=== PATIENT | male | born 1980 | race Caucasian/White ===

== ENCOUNTER 2021-03-11 19:34 | Emergency (ER) | payer BC, SELFPAY ==
[2021-03-11] VITALS (17 sets, daily range): BP systolic 140–203; BP diastolic 94–120; PULSE 60–95; RESP 12–19; TEMP 36.6; O2SAT 99–100
--- NOTE | ~2021-03-11 | CT_ITS ---
EXAMINATION: CT abdomen pelvis w con DATE: 03/11/2021 21:47 INDICATION: Abdominal pain. Leukocytosis. TECHNIQUE: Computed tomography (CT) of the abdomen and pelvis was performed with 100 cc Omnipaque 350 intravenous contrast. The dose-length product was 811.27 mGy-cm. Automated exposure control and iter ative reconstruction technique were employed. COMPARISON: None. FINDINGS: Lung bases are unremarkable. There is dependent atelectasis. Heart size is normal. No signi ficant pleural or pericardial effusion. No significant vascular abnormality. No lymphadenopathy. Ther e is moderate fluid throughout the small bowel which is nondilated. Gallstones. Fatty infiltration of the liver. Mild gallbladder distention. The spleen, pancreas, adren al glands and kidneys are unremarkable. No hydronephrosis. No abnormal pelvic masses or fluid collect ions. No free air or free fluid. There is disc narrowing at L5-S1. No evidence for fracture, subluxat ion or spondylolisthesis. IMPRESSION: 1. Cholelithiasis with gallbladder distention. Consider cholecystitis in the appropriate clinical set ting. Reviewed, dictated and finalized at location A. IMPRESSION: 1. Cholelithiasis with gallbladder distention. Consider cholecystitis in the ap propriate clinical setting.
[2021-03-11 20:14] LABS: Basophils Absolute Auto 0.1 K/mm3 (0.0-0.1); Basophils Percent Auto 0.4 % (0.2-1.2); Eosinophils Percent Auto 0.1 % (0-4.4); Hematocrit 46.2 % (42.0-52.0); Hemoglobin 16.1 g/dL (14.0-18.0); Immature Granulocyte Absolute 0.08 K/mm3 (0.00-0.031); Immature Granulocyte Percent A 0.4 % (0-0.5); Lymphocytes Absolute Auto 3.03 K/mm3 (0.9-3.2); Lymphocytes Percent Auto 14.8 % (18.3-44.2); Mean Corpuscular HGB Conc 34.8 g/dl (32-36); Mean Corpuscular Hemoglobin 29.5 pg (26-34); Mean Corpuscular Volume 84.8 fl (80-100); Mean Platelet Volume 9.1 fl (7.4-10.4); Monocytes Absolute Auto 1.9 K/mm3 (0.1-0.6); Monocytes Percent Auto 9.4 % (2.6-8.5); Neutrophils Absolute Auto 15.4 K/mm3 (1.3-6.7); Neutrophils Percent Auto 74.9 % (45.5-73.1); Platelet Count Result 344 k/mm3 (150-375); Red Blood Count 5.45 M/mm3 (4.6-6.20); Red Cell Distribution Width 13.2 % (11.5-14.5); White Blood Count 20.5 K/mm3 (4.5-10.0)
--- NOTE | 2021-03-11 20:27 | ECG_ITS ---
Measurements Intervals [place] Rate: 68 P: 41 NC: 141 QRS: 62 QRSD: 106 T: 67 QT: 408 QTc: 436 Interpretive Statements SINUS RHYTHM BASELINE ARTIFACT- I, II, III, AVR, AVL, AVF, V1-V6 NORMAL ECG Electronically Signed On 03-12-2021 8:07:27 CDT by Junior Eldridge D.O.
[2021-03-11 20:31] LABS: Alanine Aminotransferase 31 U/L (4-50); Albumin Level 5.1 g/dL (3.5-5.1); Alkaline Phosphatase 97 U/L (38-126); Anion Gap 15 mmol/L (8-16); Aspartate Amino Transferase 31 U/L (17-59); Bilirubin,Total 0.9 mg/dL (0.2-1.3); Blood Urea Nitrogen 12 mg/dL (9-20); Calcium 9.5 mg/dL (8.4-10.2); Carbon Dioxide 26 mmol/L (22-30); Chloride 100 mmol/L (98-107); Estimated CRCL calculation 126 ml/min; Estimated Glomerular Filt Rate > 60; Glucose 117 mg/dL (65-110); Lipase 61 U/L (23-300); Potassium 3.7 mmol/L (3.4-5.0); Sodium 141 mmol/L (137-145)
--- NOTE | 2021-03-11 20:57 | ED.ABDPAIN ---
HPI - Abdominal Pain General Chief Complaint: Abdominal Pain Stated Complaint: Abd pain, nausea Time Seen by Provider: 03/11/21 20:57 Source: patient Mode of arrival: ambulatory Limitations: no limitations History of Present Illness HPI narrative: 40-year-old male past medical history of hypertension arrives complaining of midepigastric pain radiating to the right upper quadrant since this afternoon. Also complains of nausea. No vomiting, no diarrhea, no hematemesis no dark tarry stools no hematochezia. Pain is described as sharp stabbing relieved by nothing. Tylenol without relief. Patient arrives in moderate distress diaphoretic complaining of epigastric pain. MD elicited complaint: abdominal pain Onset (ago): hour(s) (5) Pain Consistency: constant Location: epigastric Severity: severe Quality: stabbing and sharp Radiation: RUQ Exacerbating factors: nothing Relieving factors: nothing Context: confirms other (No previous history of same) Associated symptoms: nausea and other (No vomiting, no hematemesis, no dark tarry stools no hematochezia. No flank pain no dysuria no hematuria) Related Data Home Medications Medication Instructions Recorded Confirmed losartan 100 mg PO DAILY 03/11/21 03/11/21 metoprolol succinate 50 mg PO DAILY 03/11/21 03/11/21 venlafaxine 37.5 mg PO DAILY 03/11/21 03/11/21 Allergies Allergy/AdvReac Type Severity Reaction Status Date / Time Penicillins Allergy Unknown Verified 03/11/21 20:02 Review of Systems Review of Systems: CONSTITUTIONAL: no fever, no weight loss, no confusion EYES: no vision changes, no eye pain ENT: no rhinorrhea, no sore throat, no difficulty swallowing CARDIOVASCULAR: no chest pain, no leg edema, no palpitations RESPIRATORY: no cough, no shortness of breath, no hemoptysis GASTROINTESTINAL: positive for abdominal pain and nausea, no vomiting, no diarrhea GENITOURINARY: no flank pain, no dysuria, no hematuria SKIN: no rash, no jaundice MUSCULOSKELETAL: no back pain, no trauma. NEUROLOGIC: No headache, no dizziness, no focal weakness PSYCHIATRIC: No hallucinations, no suicidal ideation Exam Narrative: General: alert, afebrile, answering all questions appropriately Head: normocephalic, atraumatic Eyes: EOMI bilaterally, anicteric, no injection ENT: moist mucous membranes, oropharynx patent, no rhinorrhea Neck: supple, trachea midline, no JVD Chest: equal chest rise bilaterally, no chest wall trauma noted Lungs: clear to auscultation bilaterally, respirations unlabored CV: regular rate, no JOSE B, calf size equal bilaterally Abd: soft, non-distended, epigastric tenderness, no rebound, no gaurding, positive Ruiz's : no CVA tenderness B, bladder non-distended Back: no lumbar bony tenderness. paraspinal muscles without spasm EXT: no deformity noted, moving all extremities equally Skin: warm, diaphoretic, no pallor Neuro: alert, oriented x 3; CN 2-12 grossly intact, no dysarthria Psych: affect appropriate, though content normal Course Course Emergency Course: Spoke at length with patient after speaking to Dr Serrano. Advised low-fat diet, only clear liquids tonight, antibiotics were given in the ED for Cipro and Flagyl. Patient also given IV fluids. Patient will return immediately if fever, intractable vomiting, worsening pain, inability to tolerate fluids or medications or any concern. Currently patient afebrile, pain improved, tolerating small sips of p.o. Abdomen soft. Consultations Consultation #1: Spoke with Dr. Serrano, general surgeon. Went over lab results including normal LFTs but elevated WBC with right upper quadrant tenderness upon arrival. Patient Dr. Serrano states no need for emergent surgery today. We can send patient home on antibiotics and he the patient can call his office in the morning. Date: 03/11/21 Time: 23:10 Vital Signs Vital signs: Vital Signs Temperature 36.6 C 03/11/21 19:58 Pulse Rate 77 03/11/21 19:58 Respiratory Rate 18 03/11/21
[2021-03-11 20:59] LABS: Troponin I < 0.012 ng/mL (0.000-0.034)
[2021-03-11] MEDS: SODIUM CHLORIDE 0.9% IV 1,000 ML 999 ML IV CONT (21:08)
[2021-03-11] MEDS: KETOROLAC 30 MG/ML VIAL (*BKC) IV PUSH (21:08)
[2021-03-11] MEDS: ONDANSETRON INJ 4 MG/2 ML VIAL IV PUSH (21:08)
[2021-03-11] MEDS: MORPHINE SULFATE (*CRX) 4 MG/ML INJ IV PUSH (21:08)
[2021-03-11] MEDS: PANTOPRAZOLE SODIUM IV 40 MG VIAL 80 MG IV PUSH (21:09)
[2021-03-11] MEDS: CIPROFLOXACIN 400 MG/D5W 200ML 200 ML 200 MG IVPB (21:26)
[2021-03-11] MEDS: metroNIDAZOLE 500 MG/ISO 100ML 500 MG/100 ML BAG 100 MG IVPB (21:26)
[2021-03-11 21:30] LABS: Magnesium 2.1 mg/dL (1.6-2.3)
[2021-03-11 21:41] LABS: INR 0.8; Prothrombin Time 11.4 Seconds (11.1-14.7)
[2021-03-11 21:42] LABS: Partial Thromboplastin Time 26.9 SECONDS (22.3-36.8)
[2021-03-11 22:19] LABS: Add Urine Microscopic? YES; Appearance Urine Clear (Clear); Bilirubin Urine Negative (Negative); Blood Urine Negative (Negative); Color Urine Yellow (Yellow); Glucose Urine UA Negative (Negative); Ketones Urine Trace mg/dL (Negative); Leukocyte Esterase Ur Negative LEU/UL (Negative); Mucus Urine Rare /lpf; Nitrate Urine Negative (Negative); Protein Urine Negative (Negative); RBC Urine 0-2 /hpf (0-2); Specific Grav Ur 1.028 (1.001-1.035); Urobilinogen Urine Negative mg/dL (<2.0); WBC Urine 0-3 /hpf
== END 2021-03-11 23:39 | disposition home or self-care (01) ==
PROVIDERS: Emergency Medicine; Emergency Provider Emergency Medicine; PCP Family Medicine
DX: K80.20 Calculus of gallbladder without cholecystitis without obstruction (principal); K80.50 Calculus of bile duct without cholangitis or cholecystitis without obstruction
CPT/HCPCS: 36415; 74177; 80053; 81001; 83690; 83735; 84484; 85025; 85610; 85730; 87040; 93005; 96365; 96368; 96375; 99284; C9113; J0744; J1885; J2270; J2405; J7030; Q9967

== ENCOUNTER → 2021-03-27 01:35 | Outpatient (CLI) | payer BC, SELFPAY ==
[2021-03-27 18:23] LABS: SARS-CoV-2 RNA PCR Negative
== END ==
PROVIDERS: PCP Family Medicine; Visit Provider Surgery
DX: Z01.812 Encounter for preprocedural laboratory examination (principal); Z20.822 Contact with and (suspected) exposure to COVID-19
CPT/HCPCS: C9803; U0003; U0005

== ENCOUNTER 2021-03-27 08:17 | Outpatient (CLI) | payer BC, SELFPAY ==
[2021-03-27 09:05] LABS: Alanine Aminotransferase 201 U/L (4-50); Albumin Level 4.1 g/dL (3.5-5.1); Alkaline Phosphatase 308 U/L (38-126); Amylase 72 U/L (30-110); Aspartate Amino Transferase 73 U/L (17-59); Lipase 80 U/L (23-300)
== END 2021-03-27 08:18 | disposition home or self-care (01) ==
PROVIDERS: PCP Family Medicine; Visit Provider Surgery
DX: Z01.812 Encounter for preprocedural laboratory examination (principal); K80.10 Calculus of gallbladder with chronic cholecystitis without obstruction
CPT/HCPCS: 36415; 80076; 82150; 83690; 86850; 86900; 86901

== ENCOUNTER 2021-03-30 01:06 | Day surgery (SDC) | payer BC, SELFPAY ==
[2021-03-22 14:55] VITALS: BMI 26.9
--- NOTE | 2021-03-29 14:10 | WPDANESEPPF ---
Anes - Initial Pre Proc Eval Procedure: Operation Date: 03/30/21 09:00 Proposed Procedures p Laparoscopic Cholecystectomy - Kwesi Serrano MD Date/Time: 03/29/21 14:10 Surgeon: Kwesi Serrano MD Pre Op Diagnosis: Chronic Cholecystitis with Stones Patient Data Age: 40 Gender: M Height: 1.91 m Weight: 97.52 kg Allergies Allergy/AdvReac Type Severity Reaction Status Date / Time Penicillins Allergy Unknown Verified 03/30/21 07:23 Home Medications Medication Instructions Recorded Confirmed Type losartan 100 mg PO DAILY 03/11/21 03/22/21 History metoprolol succinate 50 mg PO HS 03/11/21 03/22/21 History venlafaxine 37.5 mg PO DAILY 03/11/21 03/22/21 History metronidazole 500 mg tablet 500 mg PO BID 03/15/21 03/22/21 History ciprofloxacin HCl [Cipro] 500 mg PO DAILY 03/22/21 03/22/21 History Patient hx anesthesia problems: none Family hx anesthesia problems: none Results Review: All pre-operative results and documents have been reviewed as part of the pre-operative evaluation. [facility] Past Medical History Medical History History of anxiety History of depression History of hypertension Surgical History Surgical History History of tonsillectomy 1991 Family History Family History (Updated 03/15/21 @ 08:34 by Hien Knott MA) Father No problems noted. Mother No problems noted. Sibling No problems noted. Sibling No problems noted. 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 [employer] Gender identity (if verbalized by the patient): Male Spiritual care concerns: No Anes - Eval Final PreProcedure Day of Procedure 03/29/21 14:10 Patient weight: overweight Heart: regular rate and rhythm Lungs: clear to auscultation and normal air movement Airway: Mallampati scale class II Neurological: alert and oriented Last oral intake: >/= 8 hours ASA classification: II Emergent: no Anesthetic plan: proceed Anesthesia type and monitoring: general ETT and standard monitoring Results Review: All pre-operative results and documents have been reviewed as part of the pre-operative evaluation. Informed Consent: The patient's anesthetic plan and its attendant risks and benefits were discussed with the patient/family/POA. Questions were solicited and answers provided to the satisfaction of the patient/family/POA.
[2021-03-30] VITALS (9 sets, daily range): BP systolic 137–152; BP diastolic 76–100; PULSE 62–85; RESP 12–20; TEMP 36.2–36.6; O2SAT 94–100; BMI 26.7
--- NOTE | ~2021-03-30 | XR_ITS ---
EXAMINATION: XR cholangiogram surg 1st inj EXAM DATE: 03/30/2021 10:01 INDICATION: Cholecystectomy. TECHNIQUE: Multiples Cine fluoroscopic images were obtained during injection of the cystic duct duri ng laparoscopic cholecystectomy. Procedure performed by Dr. Kwesi Serrano MD on 03/30/2021 10:01, radiologist was not present. Total fluoroscopic time of 61 seconds. The DAP for this procedure was 0.73 mGym2. A total of 262 images sent to PACS from the exam. FINDINGS: The cystic duct has been injected. There is approximately 5 mm filling defect at the ampu lla of Vater which is obstructing flow into the duodenum. There is significantly distended common mateo e duct and moderately distended proper hepatic duct. There is additional approximately 6 mm filling d efect proximal to the obstructing stone. Cholecystectomy clips. IMPRESSION: Obstructing choledocholithiasis (2 stones identified). I discussed choledocholithiasis with Dr. Serrano in the operating room at 955 a.m. Reviewed, dictated and finalized at location B.
--- NOTE | 2021-03-30 06:15 | WPDHPUPDATE1 ---
History and Physical Update Update Date/Time: 03/30/21 06:15 History and Physical has been reviewed, including an updated exam of the patient. There are NO changes in the patient's condition. Risks, benefits, and alternatives have been discussed and questions answered. Patient agrees to proceed with procedure.
[2021-03-30] MEDS: LACTATED RINGERS 1,000 ML 30 ML IV CONT ×2 (07:50→11:52)
[2021-03-30] MEDS: ACETAMINOPHEN 500 MG TABLET 1000 MG PO (07:56)
[2021-03-30] MEDS: KETOROLAC 15 MG/ML VIAL (*BKC) IV PUSH (07:56)
[2021-03-30 08:35] LABS: Alanine Aminotransferase 209 U/L (4-50); Albumin Level 4.4 g/dL (3.5-5.1); Alkaline Phosphatase 462 U/L (38-126); Aspartate Amino Transferase 133 U/L (17-59); Bilirubin,Total 1.4 mg/dL (0.2-1.3); Lipase 83 U/L (23-300)
[2021-03-30] MEDS: ceFAZolin 2 GM/D5W 50 ML 2 GM/50 ML BAG IVPB (08:51)
--- NOTE | 2021-03-30 11:06 | W.PM.PROC2 ---
Procedure Note - Detailed Date of Procedure 03/30/21 Pre-op Diagnosis Chronic Cholecystitis with Stones, abnormal LFTs Post-op Diagnosis other (Choledocholithiasis, chronic cholecystitis with stones) Procedure Performed Laparoscopic cholecystectomy with intraoperative cholangiogram Surgeon Kwesi Serrano MD Lumite Injector Aaron COFFMAN Anesthesia general and local (1% lidocaine with epinephrine) Indications Patient is a 40-year-old man who has had episodes of severe right upper quadrant abdominal pain. Imaging is showed gallstones and evidence of cholecystitis. Initially his liver functions were normal. However they were checked preoperatively 3 days ago. They were slightly elevated. The liver function tests were checked again this morning and were even more elevated. He is taken to surgery now for laparoscopic cholecystectomy with intraoperative cholangiogram. Findings Multiple stones were in the gallbladder. The gallbladder was thickened and very chronically inflamed. The cystic duct was slightly dilated. The liver appeared normal. Intraoperative cholangiogram showed 2 filling defects in the distal common bile duct and no duodenal filling. Description of Procedure The patient was taken to surgery and induced into general anesthesia. The abdomen is prepped and draped. Trocars were placed in the usual fashion using 1% lidocaine with epinephrine. [employer] optical trocars were used. Once trocars were in place and we had adequate insufflation attention was turned to the gallbladder. The gallbladder had omental adhesions attached to it throughout. The gallbladder was quite distended. The omental adhesions were taken down. A laparoscopic aspirator was then used to decompress the gallbladder. There was green bile within the gallbladder. The cholecystotomy was closed with a Vicryl endoloop. We then retracted the gallbladder anterosuperiorly. Additional adhesions were taken down as we progressed to the infundibulum and triangle of [place]. We then exposed the cholecystohepatic triangle and began dissection. There was a lot of chronic inflammation with thickened peritoneum. It was hypervascular as well. The cystic artery was dissected as was the cystic duct. The cystic artery actually was to the right of the cystic duct, a slightly unusual location. The gallbladder was dissected off the liver at its lower 3rd. Critical view was achieved. I then securely clipped and divided the cystic artery. I then dissected out the cystic duct more thoroughly. The cystic duct was slightly dilated. I placed a clip on the distal gallbladder. The cystic duct scissors were used to make a small opening in the cystic duct. A cholangiogram catheter was threaded into the cystic duct. C-arm fluoroscopy was brought into the field and we proceeded with cine fluoroscopy cholangiogram. The cholangiogram findings were as above. There was mild biliary ductal dilatation with at least 1 if not 2 filling defects consistent with distal common bile duct stones. The duodenum did not fill. After discussing the cholangiogram with the radiologist, I removed the cholangiogram catheter. The distal cystic duct was securely clipped and then the cystic duct was divided from the gallbladder. We then continued dissection of the gallbladder from the liver. This was quite difficult as there was evidence of considerable chronic inflammation. Several small openings were made in the gallbladder. Fortunately no stones spilled. I was able to suction out the bile in the gallbladder. The upper 3rd of the gallbladder was literally fused to the liver with no plane between the 2. This required dissection taking a very superficial swath of liver and cauterizing the area for hemostasis. Eventually the gallbladder was completely freed from the liver. It was placed in an Endo-Catch bag. It was retrieved through the 10 11 epigastric trocar site. The epigastric trocar site had to be enlarged to
--- NOTE | 2021-03-30 11:17 | PM.PNGS ---
Progress Note: A&P Assessment and Plan (1) Choledocholithiasis with chronic cholecystitis: Code(s): K80.44 - Calculus of bile duct with chronic cholecystitis without obstruction Status: Acute Assessment and Plan: At surgery today, intraoperative cholangiogram showed distal common bile duct filling defects consistent with gallstones in the bile duct. I discussed this finding with the patient's . I also talked with Dr. Roblero. We discussed further plans and agreed that the patient could go home today on ciprofloxacin oral antibiotics. Dr. Roblero office will call him on Friday to arrange follow-up and ERCP in the near future. Patient will call my office or go to the emergency room should he develop problems of pain fever or other changes in condition until then. He will follow-up with me in the office in 2 weeks. Subjective Subjective Date/Time Seen: 03/30/21 11:17 Objective Data Vital Signs Vital Signs: Vital Signs - 24 hr 03/30/21 07:10 03/30/21 10:47 03/30/21 11:00 Temperature 36.6 C 36.2 C L Pulse Rate 83 65 62 Respiratory Rate 14 16 12 Blood Pressure 140/99 H 143/76 H 144/81 H Pulse Oximetry 97 99 100 03/30/21 11:15 Temperature Pulse Rate 65 Respiratory Rate 14 Blood Pressure 137/78 Pulse Oximetry 100 Intake/Output Intake/Output: Intake & Output 03/27/21 03/28/21 03/29/21 03/30/21 23:59 23:59 23:59 23:59 Intake Total 50 Balance 50 Meds/Results Medications: Active Medications Generic Name Dose Route Start Last Admin Trade Name Freq PRN Reason Stop Dose Admin Fentanyl Citrate 25 mcg 03/29/21 14:11 Fentanyl Citrate Inj (*Crx) 100 Mcg/2 Ml Vial IV PUSH Q2M PRN Pain Lactated Ringer's 1,000 mls @ 30 mls/hr 03/29/21 14:15 03/30/21 10:47 Lr - Lactated Ringers Iv IV CONT 30 mls/hr .Q24H GUSTAVO Infusion Lactated Ringer's 1,000 mls @ 30 mls/hr 03/29/21 14:15 Lr - Lactated Ringers Iv IV CONT .Q24H GUSTAVO Ondansetron HCl 4 mg 03/29/21 14:11 Ondansetron Inj 4 Mg/2 Ml Vial IV PUSH ONCE PRN Nausea Oxycodone HCl 5 mg 03/29/21 14:11 Oxycodone Hcl (*Crx) 5 Mg Tab Ir PO ONCE PRN Pain Radiology Results: ITS Impressions Cholangiogram,Operative 03/30/21 10:18 IMPRESSION: Obstructing choledocholithiasis (2 stones identified). I discussed choledocholithiasis with Dr. Serrano in the operating room at 955 a.m. Labs Labs: Laboratory Results - last 24 hr 03/30/21 07:36 Total Bilirubin 1.4 H Direct Bilirubin 0.0 AST 133 H ALT 209 H Alkaline Phosphatase 462 H Total Protein 9.0 H Albumin 4.4 Lipase 83
[2021-03-30] MEDS: fentaNYL CITRATE INJ (*CRX) 100 MCG/2 ML VIAL 25 MCG IV PUSH ×2 (11:32→11:37)
[2021-03-30] MEDS: oxyCODONE HCL (*CRX) 5 MG TAB IR PO (12:33)
== END 2021-03-30 13:07 | disposition home or self-care (01) ==
PROVIDERS: PCP Family Medicine; Visit Provider Surgery
PROC: 0FT44ZZ Resection of Gallbladder, Percutaneous Endoscopic Approach (ICD-10-PCS; CPT 47562; principal; 2021-03-30 09:00)
DX: K80.46 Calculus of bile duct with acute and chronic cholecystitis without obstruction (principal); K82.A1 Gangrene of gallbladder in cholecystitis; I10 Essential (primary) hypertension; E66.3 Overweight; Z68.26 Body mass index [BMI] 26.0-26.9, adult
CPT/HCPCS: 47563; 36415; 74300; 80076; 83690; 88304; A9270; C1713; J0690; J1100; J1885; J2250; J2405; J2704; J2710; J3010; J7120; Q9966

== ENCOUNTER 2021-04-04 01:13 | Day surgery (SDC) | payer BC, SELFPAY ==
[2021-04-02 11:37] VITALS: BMI 27.6
[2021-04-04] VITALS (8 sets, daily range): BP systolic 118–161; BP diastolic 79–120; PULSE 65–94; RESP 16–21; TEMP 36.7–37.1; O2SAT 96–100; BMI 27.4
--- NOTE | ~2021-04-04 | XR_ITS ---
XR ERCP DATE: 04/04/2021 13:56 INDICATION: Cholelithiasis; cholecystectomy TECHNIQUE: 246.1 seconds fluoroscopy time 63.14 mGy 7. Spot C-arm images of right upper quadrant COMPARISON: ) cholangiogram 03/11/2021 CT abdomen FINDINGS: The common bile duct is catheterized. There is dilatation of the common bile duct. Suggesti on of distal common bile duct filling defects. Recommend correlation with ERCP report. IMPRESSION: Common bile duct dilatation, likely due to choledocholithiasis Reviewed, dictated and finalized at Location [facility]. Reviewed, dictated and finalized at location A.
[2021-04-04] MEDS: LACTATED RINGERS 1,000 ML 150 ML IV CONT (12:39)
--- NOTE | 2021-04-04 12:42 | PM.HPGS ---
History of Present Illness History of Present Illness Consent: Risks, benefits, and alternatives have been discussed and questions answered. Patient agrees to proceed with procedure. Chief complaint: bile duct stones Narrative: Audie Silveira is a 40 year old male with 3 weeks of ruq pain, he had lap kimberly last Friday but noted to have filling defect in distal bile duct after IOC, had mild elevated liver enzymes. Discharged with oral cipro and flagyl, feeling better but still not back to normal. He is here today for ERCP Review of Systems Constitutional: Constitutional: Denies headache(s) and Denies weakness Eyes: Eyes: Denies blurry vision ENT: Reports Normal hearing present, Denies headache(s) and Denies neck pain Cardiovascular: Cardiovascular: Denies chest pain and Denies dyspnea Respiratory: Respiratory: Denies dyspnea Gastrointestinal: Gastrointestinal: Reports no additional gastrointestinal complaints Genitourinary: Genitourinary: Denies dysuria Musculoskeletal: Musculoskeletal: Denies neck pain Integumentary/Breasts: Skin/Breast: Denies dry skin Neurologic: Reports Normal hearing present, Denies headache(s) and Denies weakness Psychiatric: Psychiatric: Denies anxiety Endocrine: Endocrine: Denies change in body appearance Hematologic/Lymphatic: Hematologic/Lymphatic: Denies easy bleeding Allergic/Immunologic: Allergic/Immunologic: Denies urticaria PMFSH Past Medical History Medical History (Updated 04/04/21 @ 12:43 by Nixon Goldsmith MD) Elevated liver enzymes History of anxiety History of depression History of hypertension Surgical History Surgical History History of tonsillectomy 1991 Family History Family History (Updated 03/15/21 @ 08:34 by Hien Knott MA) Father No problems noted. Mother No problems noted. Sibling No problems noted. Sibling No problems noted. 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[employer] Gender identity (if verbalized by the patient): Male Spiritual care concerns: No Meds Home Medications and Allergies Home Medications Medication Instructions Recorded Confirmed Type losartan 100 mg PO DAILY 03/11/21 04/02/21 History metoprolol succinate 50 mg PO HS 03/11/21 04/02/21 History venlafaxine 37.5 mg PO DAILY 03/11/21 04/02/21 History ciprofloxacin HCl 500 mg PO Q12H #20 tablet 03/30/21 04/02/21 Rx hydrocodone-acetaminophen 1 - 2 tablet PO Q6H PRN #15 tablet 03/30/21 04/02/21 Rx ketorolac 10 mg PO Q6H 4 Days #16 tablet 03/30/21 04/02/21 Rx Allergies Allergy/AdvReac Type Severity Reaction Status Date / Time Penicillins Allergy Unknown Verified 04/04/21 12:22 Vital Signs Vital Signs - 24 hr 04/04/21 12:37 Temperature 98.8 F Pulse Rate 94 Respiratory Rate 16 Blood Pressure 154/106 H Pulse Oximetry 100 Exam Const: General: comfortable and no acute distress HENMT: General nose exam: Normal nares present Eyes: General: appearance normal, both eyes and all related structures Neck: Neck: no JVD Resp: Auscultation: clear to auscultation bilaterally Cardio: Rate: regular rate Rhythm: regular rhythm GI: Inspection: non-distended GI Palp: Yes Soft to palpation Auscultation: normal bowel sounds Other: minimal pain in upper abdomen, no rebound Skin: General skin exam: normal color Neuro: General: gait normal Speech: normal speech Extrem: General: normal to inspection Psych: Mental Status: mental status grossly normal Assessment
--- NOTE | 2021-04-04 12:45 | P.PNAN_ITS ---
Anes - Initial Pre Proc Eval Procedure: Operation Date: 04/04/21 13:30 Proposed Procedures p Endoscopic Retro Cholangiopancreatogram - Nixon Goldsmith MD Date/Time: 04/04/21 12:45 Surgeon: Nixon Goldsmith MD Pre Op Diagnosis: bile duct stones Patient Data Age: 40 Gender: M Height: 1.88 m Weight: 97 kg Last Vital Signs Temp 98.8 F 04/04/21 12:37 Pulse 94 04/04/21 12:37 Resp 16 04/04/21 12:37 BP 154/106 H 04/04/21 12:37 Pulse Ox 100 04/04/21 12:37 Allergies Allergy/AdvReac Type Severity Reaction Status Date / Time Penicillins Allergy Unknown Verified 04/04/21 12:22 Home Medications Medication Instructions Recorded Confirmed Type losartan 100 mg PO DAILY 03/11/21 04/02/21 History metoprolol succinate 50 mg PO HS 03/11/21 04/02/21 History venlafaxine 37.5 mg PO DAILY 03/11/21 04/02/21 History ciprofloxacin HCl 500 mg PO Q12H #20 tablet 03/30/21 04/02/21 Rx hydrocodone-acetaminophen 1 - 2 tablet PO Q6H PRN #15 tablet 03/30/21 04/02/21 Rx ketorolac 10 mg PO Q6H 4 Days #16 tablet 03/30/21 04/02/21 Rx Patient hx anesthesia problems: none Family hx anesthesia problems: none Results Review: All pre-operative results and documents have been reviewed as part of the pre-operative evaluation. [facility] Past Medical History Medical History (Updated 04/04/21 @ 12:43 by Nixon Goldsmith MD) Elevated liver enzymes History of anxiety History of depression History of hypertension Surgical History Surgical History History of tonsillectomy 1991 Family History Family History (Updated 03/15/21 @ 08:34 by Hien Knott MA) Father No problems noted. Mother No problems noted. Sibling No problems noted. Sibling No problems noted. 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 Informed Consent: The patient's anesthetic plan and its attendant risks and benefits were discussed with the patient/family/POA. Questions were solicited and answers provided to the satisfaction of the patient/family/POA.
[2021-04-04] MEDS: INDOMETHACIN 50 MG SUPP.RECT RECTAL (13:02)
--- NOTE | 2021-04-04 15:03 | SUR.PHASEII ---
DR SILVINA DALAL WAS NOTIFIED PT C/O DIFFICULTY SWALLOWING SLOWLY IMPROVING, WE SUSPECT FROM INTUBATION, OK TO DISCHARGE HOME SCHEDULED
== END 2021-04-04 15:36 | disposition home or self-care (01) ==
PROVIDERS: PCP Family Medicine; Visit Provider Internal Medicine Gastroenterology
PROC: (CPT 43260; principal; 2021-04-04 13:30)
DX: R93.2 Abnormal findings on diagnostic imaging of liver and biliary tract (principal); R94.5 Abnormal results of liver function studies; R10.11 Right upper quadrant pain; Z90.49 Acquired absence of other specified parts of digestive tract
CPT/HCPCS: 43262; 43264; 74329; A9270; J0330; J1100; J2405; J2704; J3010; J7120; Q9966

== ENCOUNTER 2021-04-09 10:54 | Outpatient (CLI) | payer BC, SELFPAY ==
[2021-04-09 11:18] LABS: Hematocrit 40.1 % (42.0-52.0); Hemoglobin 13.1 g/dL (14.0-18.0); Mean Corpuscular HGB Conc 32.7 g/dl (32-36); Mean Corpuscular Hemoglobin 28.8 pg (26-34); Mean Corpuscular Volume 88.1 fl (80-100); Mean Platelet Volume 8.7 fl (7.4-10.4); Platelet Count Result 539 k/mm3 (150-375); Red Blood Count 4.55 M/mm3 (4.6-6.20); Red Cell Distribution Width 13.3 % (11.5-14.5); White Blood Count 8.4 K/mm3 (4.5-10.0)
[2021-04-09 18:25] LABS: Alanine Aminotransferase 104 U/L (4-50); Alkaline Phosphatase 277 U/L (38-126); Anion Gap 4 mmol/L (8-16); Aspartate Amino Transferase 51 U/L (17-59); Bilirubin,Total 1.1 mg/dL (0.2-1.3); Blood Urea Nitrogen 10 mg/dL (9-20); Calcium 10.1 mg/dL (8.4-10.2); Carbon Dioxide 34 mmol/L (22-30); Chloride 104 mmol/L (98-107); Estimated Glomerular Filt Rate > 60; Glucose 99 mg/dL (65-110); Potassium 4.2 mmol/L (3.4-5.0); Sodium 142 mmol/L (137-145)
== END 2021-04-09 10:55 | disposition home or self-care (01) ==
PROVIDERS: PCP Family Medicine; Referring Provider Surgery; Visit Provider Internal Medicine Gastroenterology
DX: R74.8 Abnormal levels of other serum enzymes (principal); K80.44 Calculus of bile duct with chronic cholecystitis without obstruction
CPT/HCPCS: 36415; 80053; 85027

== ENCOUNTER 2025-05-16 06:34 | Outpatient (CLI) | payer BC, SELFPAY ==
--- NOTE | ~2025-05-16 | MR_ITS ---
EXAMINATION: MRA abdomen wo/w con DATE: 05/16/2025 07:45 INDICATION: Essential hypertension TECHNIQUE: Magnetic resonance angiography (MRA) of the abdomen was performed without and with 20 mL Multihance intravenous contrast. Sequences included axial and coronal 2-D FIESTA, 3-D phase contrast at the level renal arteries and pre contrast and sequential coronal postcontrast CEMRA fat sat from which rotating maximum intensity projection reconstructions were performed. COMPARISON: CT dated 03/11/2021 FINDINGS: Normal caliber abdominal aorta. No evident stenosis along the abdominal aorta, celiac axis including its hepatic and splenic artery branches, the superior and inferior mesenteric arteries, both the right and left renal arteries and both the left and right common iliac and visualized portions of the proximal internal and external iliac arteries. The liver, spleen, pancreas, bilateral adrenal glands, kidneys and visualized portion of the bowels are normal. No pathologically enlarged abdominal lymphadenopathy. IMPRESSION: 1. Unremarkable abdominal MR angiogram specifically with no evidence stenosis along the renal arteries or other arteries arising from the abdominal aorta. Reviewed, dictated and finalized at location A. [facility] IMPRESSION: 1. Unremarkable abdominal MR angiogram specifically with no evidence stenosis a long the renal arteries or other arteries arising from the abdominal aorta.
--- OUTSIDE RECORDS SUMMARY | 2025-05-16 06:39 | XMS_ITS | Encounter Summary ---
Author Organization [facility] Address [address] [place] [address] Care Team Providers Care Senior Hydrogeologist Name Role Phone Chandler Mccullough DO Primary Care Provider + Encounter Details Date Type Department Care Team (Late st Contact Info) Description 10/14/2023 Lab Requisition [facility] - DermPath Lab [address] [facility], [facility] [place] [phone] Dorina Capellan MD [address] [facility] [address] [place] [address] Social History Tobacco Use Types Packs/Day Years Used Date Smoking Tobacco: Never Assessed Sex and Gender Information Value Date Recorded Sex Assigned at Not on file 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 Gender Identity Not on file Sexual Orientation Not on file documented as of this encounter Plan of Treatment Not on file documented as of this encounter Procedures Procedure Name Priority Date/Time Associated Diagnosis Comments DERMATOPATHOLOGY Routine 10/14/2023 8:23 AM CDT documented in this encounter Results * DERMATOPATHOLOGY (10/14/2023 8:23 AM CDT) Case Report Dermatopathology Report Case: [id number] Authorizing Provider: Dorina Capellan MD Collected: 10/14/2023 08:23 AM Ordering Location: [facility] - Received: 10/14/2023 03:31 PM DermPath Lab Pathologist: Christina Guerra MD Specimen: Skin, left post scalp 3:40 PM CDT DERMATOPATHOLOGY LABORATORY Final Diagnosis Specimen A. SKIN, left post scalp: BENIGN VERRUCOUS KERATOSIS WITH ASSOCIATED CHANGES OF PRURIGO NODULARIS (L82.1) 4 3:40 PM CDT DERMATOPATHOLOGY LABORATORY at 1540 CDT Clinical History ISK vs. Irritated Nevus r/o NMSC 4 3:40 PM CDT DERMATOPATHOLOGY LABORATORY Gross Description Specimen A: Received is one formalin filled container labeled with the patient's name and designated left post scalp. The specimen consists of a shave biopsy measuring 8x7x2 mm. Jar 0. 4 3:40 PM CDT DERMATOPATHOLOGY LABORATORY Microscopic Description Specimen A. SKIN, left post scalp: Sections show hyperkeratosis, papillomatosis, hypergranulosis, and acanthosis. These histological findings can be seen in a verruca vulgaris or a seborrheic keratosis. There is a dome-shaped portion of skin with psoriasiform epidermal hyperplasia, compact hyperkeratosis, and fibrosis of the papillary dermis associated with a superficial perivascular lymphohistiocytic infiltrate. 4 3:40 PM CDT DERMATOPATHOLOGY LABORATORY Disclaimer An external and internal positive and negative controls are appropriate for the histochemical, immunohistochemical and immunofluorescence stain(s) in this case (if any), except where stated explicitly. The performance characteristics of the stain(s) cited in this report were developed and its performance characteristic determined by the Dermatopathology Laboratory at [facility], directed by Dr. Micheline Guerra. These tests need not be, and therefore are not, approved by the [place] Food and Drug Administration. The tests are used for clinical purposes. Billing Codes Specimen Charges Stain Charges 84503 1 4 3:40 PM CDT DERMATOPATHOLOGY LABORATORY Embedded Images 4 3:40 PM CDT DERMATOPATHOLOGY LABORATORY Pathology/Cytolo gy TISSUE SPECIMEN FROM SKIN / Unknown 10/14/2023 8:23 AM CDT 10/14/2023 3:31 PM CDT us Dorina Capellan MD LAB - PATHOLOGY/CYTOLOGY OR DERABLES Final Result DERMATOPATHOLOGY LABORATORY [facility] - Department of Dermatology [address] Floor [place], [place] [id number] [place] [address] documented in this encounter Visit Diagnoses Not on filedocumented in this encounter Care Teams Senior Hydrogeologist Relationship Specialty Start Date End Date Chandler Mccullough DO [address] [facility] [facility] [address] [place] [phone] PCP - General 04/03/21 documented as of this encounter
--- OUTSIDE RECORDS SUMMARY | 2025-05-16 06:39 | XMS_ITS | Clinical Summary ---
Author Organization [facility] Address [address] [place] [id number] Care Team Providers Care Inspector Elevators Name Role Phone Chandler Garvin DO Primary Care Provider [phone] Social History Tobacco Use Types Packs/Day Years Used Date Smoking Tobacco: Never Assessed Sex and Gender Information Value Date Recorded Sex Assigned at Not on file Legal Sex Male 6:16 PM CDT Gender Identity Not on file Sexual Orientation Not on file Plan of Treatment Health Maintenance Due Date Last Done Comments Colorectal Cancer Screening Colonoscopy (10 Years) 1979 Annual Physical 11/06/1982 Hepatitis C 11/06/1997 DTaP, Tdap and Td Vaccines ( 1 - Tdap) 11/06/1998 Hepatitis B Vaccines (1 of 3 - 19+ 3-dose series) 11/06/1998 HPV Vaccines (1 - 3-dose SCD M series) 11/06/2006 COVID-19 Vaccine (2024-2 6 season) 2025 Influenza Adult (#1) 2025 Hepatitis A Vaccines Aged Out No long er eligible based on patient's age to complete this topic Meningococcal B Vaccine Aged Out No l onger eligible based on patient's age to complete this topic Meningococcal Vaccine Aged Out No jason dmitriy eligible based on patient's age to complete this topic Pneumococcal Vaccine: Pediat rics (0 to 5 Years) and At-Risk Patients (6 to 49 Years) Aged Out No longer eligible b ased on patient's age to complete this topic RSV Immunizations Under 20 Months Aged Out No longer eligible based on patient's age to complete this topic [facility] Care Teams Inspector Elevators Relationship Specialty Start Date End Date Chandler Garvin DO PCP - General FAMILY PRACTICE 12/02/23
--- OUTSIDE RECORDS SUMMARY | 2025-05-16 06:39 | XMS_ITS | Encounter Summary ---
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 us Historical Provider Final Res ult documented in this encounter Visit Diagnoses Not on filedocumented in this encounter Care Teams Bag End Sewer Relationship Specialty Start Date End Date Chandler Mccullough DO PCP - General Family Medicine 03/05/19 documented as of this encounter
--- OUTSIDE RECORDS SUMMARY | 2025-05-16 06:39 | XMS_ITS | Clinical Summary ---
Author Organization [facility] Address [address] [place] [address] Care Team Providers Care Hand Stapler Name Role Phone Chandler Mccullough DO Primary Care Provider + Allergies Active Allergy Reactions Criticality Noted Date Comments Penicillin V Potassium Unknown 03/26/2019 Medications venlafaxine XR (EFFEXOR-XR) 75 mg 24 hr capsule TAKE 1 CAPSULE BY MOUTH EVERY DAY 90 capsule 1 3 Active metoprolol XL (TOPROL-XL) 100 mg 24 hr tablet TAKE 1 TABLET BY MOUTH EVERY DAY 90 tablet 1 3 Active losartan (COZAAR) 100 mg tablet TAKE 1 TABLET BY MOUTH EVERY DAY 90 tablet 1 3 Active testosterone 20.25 mg/1.25 gram (1.62 %) gel in metered-dose pump APPLY 2 PUMPS BY TRANSDERMAL ROUTE EVERY DAY 4 Active aspirin 81 mg enteric coated tablet Take 1 tablet (81 mg total) by mouth daily Active rosuvastatin (CRESTOR) 20 mg tablet Take 1 tablet (20 mg total) by mouth daily Active Active Problems Problem Noted Date Diagnosed Date GOLDIE (obstructive sleep apnea) 01/07/2024 Family history of sleep apnea 01/07/2024 BMI 34.0-34.9,adult 01/07/2024 Psychophysiological insomnia 01/07/2024 Nonsmoker 01/07/2024 Snoring 01/07/2024 Dyslipidemia 09/07/2021 Assessment & Plan (03/08/2022 8:26 AM CDT): Improved some on last labs. Hold on medication. Will try to watch diet. Assessment & Plan (09/07/2021 9:40 AM CDT): Working on diet and exercise. Repeat lipid panel in 6 months. Major depressive disorder wi th single episode, in full remission 01/26/2021 Assessment & Plan (09/06/2022 8:01 AM CDT): Cont effexor Assessment & Plan (03/08/2022 8:26 AM CDT): Increase Effexor XR to 75 mg daily. Discussed with patient about common side effects of medication including potential for worsening symptoms or new/worsening suicidal thoughts. Should this occur, patient should stop the medication immediately and call/RTC or go to ER. Medications for depression/anxiety can take up to 4-6 weeks to reach maximum effectiveness in the body. Call office to report any concerning side effects or new/worsening symptoms. Assessment & Plan (09/07/2021 9:41 AM CDT): Continue Effexor XR 37.5 mg daily Assessment & Plan (01/26/2021 7:40 AM CDT): Add effexor 37.5 mg Annual physical exam 06/29/2020 Assessment & Plan (09/06/2022 8:00 AM CDT): Routine blood work to include a CBC Chem 7 lipid profile TSH with reflex to free T4 liver function tests. Also paperwork for exemption for a COVID vaccination is filled out. Assessment & Plan (06/29/2020 7:25 AM CISCO CERTIFIED NETWORK ASSOCIATE): Routine lab HTN (hypertension) 04/27/2019 Assessment & Plan (09/06/2022 8:01 AM CDT): Patient is well controlled. Continue current treatment. Assessment & Plan (03/08/2022 8:28 AM CDT): Not to goal <140/90. Increase metoprolol XL to 100 mg daily. Continue losartan 100 mg daily. He will try to watch salt and diet and start exercising more. He ideally doesn't want to follow up in office for another 6 months. He will begin checking BP at home once daily and send readings through [employer] (delayed message sent to patient for 03/25/22). Assessment & Plan (09/07/2021 9:40 AM CDT): Borderline elevated today. He wants to work on improving diet and exercise before adjusting meds. Advised limiting salt intake. Increase exercise to 5 days a week, at minimum of 30 minutes a session. Continue current medications. Assessment & Plan (01/26/2021 7:40 AM CDT): Patient is well controlled. Continue current treatment. Assessment & Plan (09/15/2020 8:49 AM CDT): Patient is well controlled. Continue current treatment. Assessment & Plan (07/28/2020 8:22 AM CISCO CERTIFIED NETWORK ASSOCIATE): Increase toprol xl 50 mg Assessment & Plan (06/29/2020 7:33 AM CISCO CERTIFIED NETWORK ASSOCIATE): Refill med Stop amlodipine Start toprol xl 25 mg daily Fu 3 weeks Assessment & Plan (12/28/2019 7:22 AM CDT): Cont losartan 100 mg Update 3 weeks Will need norvasc 5 mg at hs if remains elevated He will contact me Assessment & Plan (06/18/2019 8:44 AM CISCO CERTIFIED NETWORK ASSOCIATE): Stop amlodipine Cozaar 50 Lab 1 week Assessment & Plan (04/27/2019 7:47 AM CISCO CERTIFIED NETWORK ASSOCIATE): Amlodipine 5 daily Pilonidal cyst 03/26/2019 Assessment & Plan (04/27/2019 7:48 AM CISCO CERTIFIED NETWORK ASSOCIATE): Saw surgeon Will monitor Assessment & Plan (03/26/2019 9:52 AM CDT): refer to surgeon Resolved Problems Problem Noted Date Diagnosed Date Resolved Date Skin lesions 03/26/2019 06/29/2020 Skin lesions 03/26/2019 06/29/2020 Assessment & Plan (03/26/2019 9:47 AM CDT): See Derm Immunizations Immunization Administration Dates Next Due Influenza, Unspecified 03/02/2022(Deferred: Myla ent Refused) Surgical History Surgery Date Site/Laterality Comments TONSILLECTOMY MOLE REMOVAL x2 CHOLECYSTECTOMY 03/02/2021 - 04/01/2021 ERCP 04/04/2021 CYST REMOVAL 08/09/2020 back Medical History Medical History Date Comments Hypertension Family History Medical History Relation Name Comments No Known Problems Brother 1 No Known Problems Brother 2 No Known Problems Brother 3 No Known Problems Brother 4 No Known Problems Brother 5 No Known Problems Brother 6 No Known Problems Brother 7 No Known Problems Brother 8 Diabetes Father Heart disease Father Heart attack Maternal Grandfather Breast cancer Maternal Grandmother Heart disease Maternal Grandmother Stroke Maternal Grandmother Mental illness Mother No Known Problems Sister 1 No Known Problems Sister 2 Relation Name Status Comments Brother 1 Alive Brother 2 Alive Brother 3 Alive Brother 4 Alive Brother 5 Alive Brother 6 Alive Brother 7 Alive Brother 8 Alive Father Maternal Grandfather Maternal Grandmother Mother Alive Sister 1 Alive Sister 2 Alive Social History Tobacco Use Types Packs/Day Years Used Date Smoking Tobacco: Never Smokeless Tobacco: Never Tobacco Cessation:Counseling Given: Not Answered Alcohol Use Standard Drinks/Week Comments Never 0 (1 standard drink = 0.6 oz pur e alcohol) AUDIT-C Answer Date Recorded Q1: How often do you have a drink containing alc ohol? Never 09/07/2021 Average Number of Drinks Not on file 022 Q3: How often do you have si x or more drinks on one occasion? Never 09/07/2021 PHQ-2 Answer Date Recorded PHQ-2 Total Score (If total score is 3 or more points, staff should administer the PHQ-9) 2 09/06/2022 Personal Safety Answer Date Recorded Have you ever been in or are you currently in a harmful physical or emotional relationship or is someone making you feel afraid or unsafe? Denies 02/11/2024 Sex and Gender Information Value Date Recorded Sex Assigned at Not on file Legal Sex Male 12:10 AM CISCO CERTIFIED NETWORK ASSOCIATE Gender Identity Male 12/27/2019 12:32 PM CDT Sexual Orientation Straight 12/27/2019 12 :32 PM CDT Last Filed Vital Signs Vital Sign Reading Time Taken Comments Blood Pressure 112/72 10/06/2024 8:29 AM CDT Pulse 91 10/06/2024 8:29 AM CDT Temperature 35.8 C (96.4 F) 10/06/2024 8:29 AM CDT Respiratory Rate 16 10/06/2024 8:29 AM CDT Oxygen Saturation 97% 10/06/2024 8:29 AM CDT Inhaled Oxygen Concentration - - Weight 126.1 kg (278 lb) 10/06/2024 8:29 AM CDT Height 190.5 cm (6' 3) 10/06/2024 8:29 AM CDT Body Mass Index 34.75 10/06/2024 8:29 AM CDT Plan of Treatment Health Maintenance Due Date Last Done Comments Colon Cancer Screening-Colonoscopy 1979 Hepatitis C Screening 1979 DTaP/Tdap/Td Vaccine (1 - Tdap) 11/06/1990 Varicella Vaccines (1 of 2 - 13+ 2-dose series) 11/06/1992 Hepatitis B Screening 11/06/1997 HPV Vaccines (1 - 3-dose SCDM series) 11/06/2006 Depression Screening 09/07/2023 09/06/2022, 09/07/2021, 06/29/2020, Additional history exists Regular Well Visit/Exam 18-64 09/07/2023 09/06/2022, 09/07/2021, 06/29/2020 Influenza Vaccine Discontinued Pneumococcal vaccine <65 Aged Out No longer eligible based on patient's age to complete this topic Insurance [facility] Care Teams Hand Stapler Relationship Specialty Start Date End Date Chandler Mccullough DO PCP - General Family Medicine 03/05/19
--- OUTSIDE RECORDS SUMMARY | 2025-05-16 06:39 | XMS_ITS | Clinical Summary ---
Author Organization [facility] Address [address] [facility] [place] [address] Care Team Providers Care Bowl Sander Name Role Phone Chandler Mccullough Rolan DO Primary Care Provider + Source Comments [facility],non-owned Affiliates and Associated Physician Practices is amultiple site organization consisting of ambulatory clinics and hospital sitesin [place], [place], [place] and [place]. This disclosure is being madepursuant to the Care Everywhere program and may not contain all information available regarding this patient. 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 Gender Identity Not on file Sexual Orientation Not on file Plan of Treatment Health Maintenance Due Date Last Done Comments COLOGUARD (AGES 45-75) - COL ON CA SCREENING 1979 COLON MONITORING 1979 COLONOSCOPY - COLON CA SCREENING 1979 CT COLONOGRAPHY - COLON CA SCREENING 1979 Colorectal Cancer Screening 1979 FIT - COLON CA SCREENING 1979 FLEX SIG - COLON CA SCREENING 1979 LIPID TESTING 1979 HIV SCREENING 11/06/1994 HEPATITIS C SCREENING 11/02/1997 DTAP/TDAP/TD VACCINES (1 - Tdap) 11/06/1998 HEPATITIS B VACCINE (1 of 3 - 19+ 3-dose series) 11/06/1998 HPV VACCINE (1 - 3-dose SCDM series) 11/06/2006 DEPRESSION SCREENING 06/02/2024 COVID-19 VACCINE (2024-2 6 season) 2025 INFLUENZA VACCINE (#1) 2025 ZOSTER VACCINE (1 of 2) 11/06/2029 HIB VACCINE Aged Out No longer eligi ble based on patient's age to complete this topic MENINGOCOCCAL (Group B) VACC INE SHARED DECISION-MAKING Aged Out No longer eligibl e based on patient's age to complete this topic MENINGOCOCCAL GROUPS A/C/Y/W VACCINE Aged Out No longer eligible b ased on patient's age to complete this topic PNEUMOCOCCAL VACCINE Aged Out No long er eligible based on patient's age to complete this topic Insurance [facility] Care Teams Bowl Sander Relationship Specialty Start Date End Date Chandler Mccullough DO [address] [place] [phone] PCP - General 04/03/21
== END 2025-05-16 06:35 | disposition home or self-care (01) ==
PROVIDERS: PCP Family Medicine; Visit Provider Family Medicine
DX: I10 Essential (primary) hypertension (principal)
CPT/HCPCS: 74185; A9577; C8902